=== PATIENT | female | born 2000 | race Caucasian/White ===

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

== ENCOUNTER 2018-03-12 13:16 | Emergency (ER) | payer OTHER ==
[~2018-03-12] VITALS: Ht 170.2 cm; Wt 60.6 kg
[~2018-03-12 13:16] MED LIST changes: +BENTYL10 MG PO; +DOXYCYCLINE HY100 M3 PO; +SPRINTEC1 EACH PO; +TOPIRAMATE50 MG PO; +ZOFRAN ODT4 MG PO
[2018-03-12] MEDS ORDERED: PERCOCET 5/31 TABLET PO (14:22)
[2018-03-12 14:37] VITALS: BP 120/77
== END 2018-03-12 14:38 | disposition home or self-care (01) ==
LOC: EME 13:16
PROC: 0HQ1XZZ Repair Face Skin, External Approach (ICD-10-PCS; principal; 2018-03-12)
DX: S01.112A Laceration without foreign body of left eyelid and periocular area, initial encounter (principal); W22.8XXA Striking against or struck by other objects, initial encounter
CPT/HCPCS: 99281; 99283